=== PATIENT | male | born 1995 | race Caucasian/White ===

== ENCOUNTER → 2020-08-06 17:24 | Outpatient (CLI) | payer SELFPAY ==
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
== END ==
PROVIDERS: Visit Provider Nurse Practitioner
DX: Z02.5 Encounter for examination for participation in sport (principal)

== ENCOUNTER 2021-04-13 22:36 | Emergency (ER) | payer OTHER, SELFPAY ==
[2021-04-13 22:38] VITALS: BP 141/89; PULSE 89; RESP 16; TEMP 36.4; O2SAT 98; BMI 19.8
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
[2021-04-13 23:00] VITALS: BP 163/66; PULSE 52; O2SAT 97
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
[2021-04-13 23:30] VITALS: BP 149/85; PULSE 71; RESP 16; O2SAT 99
[2021-04-14 00:06] VITALS: BP 137/75; PULSE 69; RESP 16; TEMP 36.6; O2SAT 98
== END 2021-04-14 00:07 | disposition home or self-care (01) ==
PROVIDERS: Emergency Provider Emergency Medicine
DX: S69.81XA Other specified injuries of right wrist, hand and finger(s), initial encounter (principal); W39.XXXA Discharge of firework, initial encounter; Z88.0 Allergy status to penicillin
CPT/HCPCS: 73130; 99281; 99282

== ENCOUNTER → 2021-11-13 16:08 | Outpatient (CLI) | payer OTHER, SELFPAY | PROVIDERS: Visit Provider Urology | DX: Z01.812 Encounter for preprocedural laboratory examination (principal); Z11.52 Encounter for screening for COVID-19; Z30.2 Encounter for sterilization | CPT/HCPCS: C9803; U0003; U0005 ==

== ENCOUNTER 2021-12-24 22:35 | Emergency (ER) | payer OTHER, SELFPAY ==
[2021-12-24 22:36] VITALS: BP 128/87; PULSE 104; RESP 18; TEMP 36.3; O2SAT 100; BMI 19.8
--- NOTE | 2021-12-24 23:05 | CT_ITS ---
PROCEDURE INFORMATION: Exam: CT Abdomen And Pelvis With Contrast Exam date and time: 12/24/2021 11:05 PM Age: 26 years old Clinical indication: Abdominal pain; Patient HX: Diarrhea that started around 1400 today. States he feels queasy with abdominal cramping TECHNIQUE: Imaging protocol: Computed tomography of the abdomen and pelvis with contrast. Radiation optimization: All CT scans at this facility use at least one of these dose optimization techniques: automated exposure control; mA and/or kV adjustment per patient size (includes targeted exams where dose is matched to clinical indication); or iterative reconstruction. Contrast material: ISOVUE; Contrast volume: 75 ml; Contrast route: IV; COMPARISON: No relevant prior studies available. FINDINGS: Liver: Normal. No mass. Gallbladder and bile ducts: Normal. No calcified stones. No ductal dilation. Pancreas: Normal. No ductal dilation. Spleen: Normal. No splenomegaly. Adrenal glands: Normal. No mass. Kidneys and ureters: Normal. No hydronephrosis. Stomach and bowel: There is fluid within the rectum and sigmoid colon. There is wall thickening of the descending, transverse and ascending colons concerning for low-grade colitis. Scattered fluid-filled nondistended small bowel loops. No bowel obstruction. Appendix: Normal appendix. Intraperitoneal space: Unremarkable. No free air. No significant fluid collection. Vasculature: Unremarkable. No abdominal aortic aneurysm. Lymph nodes: Unremarkable. No enlarged lymph nodes. Urinary bladder: Urinary bladder not well distended. Reproductive: Unremarkable as visualized. Bones/joints: Unremarkable. No acute fracture. Soft tissues: Unremarkable. IMPRESSION: 1. Colitis involving the descending, transverse and ascending colons. 2. Scattered fluid-filled nondistended small bowel loops which could reflect low-grade enteritis.
[2021-12-24 23:16] LABS: Basophils # 0.2 K/mm3 (0-0.2); Basophils % 1.6 % (0.1-2.0); Eosinophils # 0.2 K/mm3 (0.0-0.4); Eosinophils % 1.2 % (0.1-12.0); Hematocrit 59.2 % (42.0-52.0); Lymphocytes # 0.5 K/mm3 (0.7-4.5); Lymphocytes % 3.5 % (10-50); Mean Corpuscular HGB Conc 33.1 g/dL (31.8-35.4); Mean Corpuscular Hemoglobin 31.1 pg (27.0-31.2); Mean Corpuscular Volume 94.2 fl (80-94); Mean Platelet Volume 8.4 fl (7.4-10.4); Monocytes # 0.5 K/mm3 (0.1-1.0); Monocytes % 3.5 % (1.7-9.3); Neutrophils % 90.3 % (37.0-80.0); Platelet Count 422 K/mm3 (142-424); Red Blood Count 6.28 M/mm3 (4.60-6.20); White Blood Count 15.6 K/mm3 (4.8-10.8)
--- NOTE | 2021-12-24 23:19 | HMH.EDNVD ---
ED Disposition Clinical Impression: Colitis, Rotavirus enteritis Disposition: Home, Self-Care Condition on Discharge: Good Instructions: DI for Rotavirus -- Adult Additional Instructions: fluids and see pcp for follow up Prescriptions: Ondansetron [Zofran 4mg ODT] 4 mg PO TIDP PRN #15 tab PRN Reason: Nausea And Vomiting Transmission Status: Pending to [id number] Referrals: Antonio Hurt MD [Primary Care Provider] - - Critical Care Critical Care Time: No Attestation: On 12/24/21, the high probability of a clinically significant, sudden or life threatening deterioration of the following system(s) required my full and direct attention, intervention and personal management. The time I documented below is in addition to time spent performing reported procedures but includes the following listed in this critical care notation. Medical Decision Making - Medical Records Medical records reviewed: Yes: I reviewed the patient's medical records. - Mario Inquiry Pt receiving controlled substance: No Vital Signs: 12/24/21 22:36 12/24/21 23:33 12/25/21 00:00 Temperature 97.4 F L Temperature Source Oral Pulse Rate 98 H 90 Pulse Rate [Left Brachial] 104 H Respiratory Rate 18 Blood Pressure 129/83 133/73 Blood Pressure [Right Arm] 128/87 Blood Pressure Mean 91 100 Blood Pressure Mean [Right Arm] 100 02 Sat by Pulse Oximetry 100 100 97 Oxygen Delivery Method Room Air 12/25/21 00:30 12/25/21 01:00 12/25/21 01:30 Temperature Temperature Source Pulse Rate 90 88 70 Pulse Rate [Left Brachial] Respiratory Rate Blood Pressure 148/75 H 134/68 131/71 Blood Pressure [Right Arm] Blood Pressure Mean 95 90 89 Blood Pressure Mean [Right Arm] 02 Sat by Pulse Oximetry 97 100 98 Oxygen Delivery Method - Lab Data Lab results reviewed: Yes: I reviewed the patient's lab results. Lab Results 12/24/21 22:20: WBC 15.6 H, RBC 6.28 H, Hgb 19.6 H, Hct 59.2 H, MCV 94.2 H, MCH 31.1, MCHC 33.1, RDW 13.0, Plt Count 422, MPV 8.4, Neut % (Auto) 90.3 H, Lymph % (Auto) 3.5 L, [place]ford % (Auto) 3.5, Eos % (Auto) 1.2, Baso % (Auto) 1.6, Neut # (Auto) 14.0 H, Lymph # (Auto) 0.5 L, Blackford # (Auto) 0.5, Eos # (Auto) 0.2, Baso # (Auto) 0.2, Total Counted 100, Neutrophils % (Manual) 88 H, Lymphocytes % (Manual) 6 L, Monocytes % (Manual) 4, Basophils % (Manual) 2.0 H, Platelet Estimate Normal, RBC Morphology Normal 12/24/21 22:20: Sodium 140, Potassium 5.0, Chloride 101, Carbon Dioxide 21 L, Anion Gap 23.0 H, BUN 15, Creatinine 2.00 H, Estimated Creat Clear 53, Estimated GFR 40 L, Est GFR ( Amer) 49 L, Glucose 175 H, Calcium 11.1 H 12/24/21 22:20: Creatinine 2.00 H, Estimated Creat Clear 53, Estimated GFR 40 L, Est GFR ( Amer) 49 L, Amylase 97 12/24/21 22:20: Lipase 126, Procalcitonin 0.106 12/24/21 22:20: Total Bilirubin 1.3, Direct Bilirubin 0.6 H, Conjugated Bilirubin 0.0, Indirect Bilirubin 0.7, Unconjugated Bilirubin 0.7, AST 47, ALT 27, Alkaline Phosphatase 93, C-Reactive Protein < 0.3, Total Protein 10.7 H, Albumin 6.2 H 12/24/21 22:20: ESR 3 12/24/21 22:30: Stl Aeromonas (PCR) Not detected, Stl C. cayetanensis PCR Not detected, Stool Rotavirus (PCR) Detected A, Stl Adenov F 40/41 PCR Not detected, Stool Astrovirus (PCR) Not detected, Stool Campylobacter PCR Not detected, Stl C.difficile Tox PCR Not detected, Stool Cryptosporidium PCR Not detected, Stl E.coli Shiga Tox PCR Not detected, Stool E coli O157 PCR Not detected, Stl Enterotoxigenic E PCR Not detected, Stool EPEC (PCR) Not detected, Stool EAEC (PCR) Not detected, Stl E. histolytica PCR Not detected, Stool Giardia Lamblia PCR Not detected, Stool Salmonella PCR Not detected, Stool Sapovirus (PCR) Not detected, Stl P. shigelloides PCR Not detected, Stl Shigella/EIEC PCR Not detected, St Y.enterocolitica PCR Not detected, Stool Vibrio (PCR) Not detected, Stl Vibrio cholerae PCR Not detected, Stl Norovirus GI/GII PCR Not detected
[2021-12-24 23:26] LABS: Amylase 97 U/L (30-110); Creatinine Clearance Estimated 53 mL/min (50-200); Estimated Glomerular Filt Rate 40 ml/min (>60); GFR (African American) 49 ML/MIN (>60); MANUAL DIFFERENTIAL MANUAL DIFFERENTIAL (MANUAL DIFF)
[2021-12-24 23:27] LABS: Blood Urea Nitrogen 15 mg/dl (9-20); Calcium 11.1 mg/dl (8.4-10.2); Carbon Dioxide 21 mmol/L (22.0-30.0); Chloride 101 mmol/L (98-107); Creatinine Clearance Estimated 53 mL/min (50-200); Estimated Glomerular Filt Rate 40 ml/min (>60); GFR (African American) 49 ML/MIN (>60); Glucose 175 mg/dl (74-100); Hemoglobin 19.6 g/dL (14.1-18.0); Sodium 140 mmol/L (136-145)
[2021-12-24 23:33] VITALS: BP 129/83; PULSE 98; O2SAT 100
[2021-12-24 23:48] LABS: Erythrocyte Sedimentation Rate 3 mm/hr (0-15)
[2021-12-24 23:53] LABS: Alanine Aminotransferase 27 U/L (12-78); Aspartate Amino Transferase 47 U/L (17-59); Bilirubin,Unconjugated 0.7 mg/dL (0.0-1.1); Lipase 126 U/L (23-300); Lymphocytes % 6 % (10-50); Monocytes % 4 % (2-9); Neutrophils % 88 % (42-76); Platelet Estimate Normal; RBC Morphology Normal; Total Cells Counted 100
[2021-12-24 23:54] LABS: Alkaline Phosphatase 93 U/L (38-126); Bilirubin,Direct 0.6 mg/dl (0.0-0.4); Bilirubin,Indirect 0.7 mg/dL (0.0-0.9); Bilirubin,Total 1.3 mg/dl (0.2-1.3)
[2021-12-25] VITALS: BP 133/73; PULSE 90; O2SAT 97
[2021-12-25] LABS: Total Protein,Serum 10.7 g/dl (6.3-8.2)
[2021-12-25 00:02] LABS: Adenovirus F 40/41, stool Not Detected (NotDetected); Astrovirus Not Detected (NotDetected); Campylobacter Not Detected (NotDetected); Clostridium Difficile A/B, PCR Not Detected (NotDetected); Cryptosporidium Not Detected (NotDetected); Cyclospora Cayetanesis Not Detected (NotDetected); Entamoeba histolytica Not Detected (NotDetected); Enteroaggregative E coli Not Detected (NotDetected); Enteropathogenic E coli Not Detected (NotDetected); Enterotoxigenic E coli Not Detected (NotDetected); Giardia lamblia Not Detected (NotDetected); Norovirus Not Detected (NotDetected); Plesimonas Shigalloides, PCR Not Detected (NotDetected); Salmonella, PCR Not Detected (NotDetected); Sapovirus Not Detected (NotDetected); Shiga-like toxin E coli Not Detected (NotDetected); Shigella Enterovasive E coli Not Detected (NotDetected); Vibrio Cholerae Not Detected (NotDetected); Vibrio, PCR Not Detected (NotDetected); Yersinia Entercolitica, PCR Not Detected (NotDetected)
[2021-12-25 00:10] LABS: C-Reactive Protein < 0.3 mg/L (0-4)
[2021-12-25 00:11] LABS: Procalcitonin 0.106 ng/mL (0.0-2.0)
[2021-12-25 00:28] LABS: Albumin Level 6.2 g/dl (3.5-5.0)
[2021-12-25 00:30] VITALS: BP 148/75; PULSE 90; O2SAT 97
[2021-12-25 01:00] VITALS: BP 134/68; PULSE 88; O2SAT 100
[2021-12-25 01:12] LABS: Lactic Acid 0.9 mmol/L (0.7-2.1)
[2021-12-25 01:30] VITALS: BP 131/71; PULSE 70; O2SAT 98
--- NOTE | 2021-12-25 01:59 | PC.NURSE ---
PT SLEEPING WITH EYES CLOSED. RESPIRATIONS EVEN AND NON-LABORED. FAMILY AT BEDSIDE. NO ACUTE DISTRESS NOTED.
[2021-12-25 02:06] LABS: Microscopic, Urine URINE MICROSCOPIC (MICROSCOPIC)
[2021-12-25 02:07] LABS: Rotavirus A Detected (NotDetected)
[2021-12-25 02:15] LABS: Appearance,Urine CLEAR (Clear); Bilirubin,Urine Negative (Negative); Blood, Urine TRACE-L (Negative); Color,Urine YELLOW (Yellow); Glucose,Urine (UA) TRACE (Negative); Ketones,Urine Negative (Negative); Leukocyte Esterase,Urine Negative (Negative); Nitrate,Urine Negative (Negative); Protein,Urine 3+ (Negative); Specific Gravity, Urine >= 1.030 (1.005-1.030); Urobilinogen,Urine 0.2 EU/dl (0.2)
[2021-12-25 02:34] LABS: Amorphous Sediment,Urine 1+ /lpf; Bacteria,Urine 1+ /lpf; Squamous Epithelial Cell,Urine Occasional #/hpf (0-5)
[2021-12-25 02:47] VITALS: BP 118/65; PULSE 72; RESP 16; TEMP 36.8; O2SAT 97
== END 2021-12-25 02:53 | disposition home or self-care (01) ==
PROVIDERS: Emergency Provider Emergency Medicine; PCP Emergency Medicine
DX: A08.0 Rotaviral enteritis (principal); K52.9 Noninfective gastroenteritis and colitis, unspecified; R25.2 Cramp and spasm; F17.210 Nicotine dependence, cigarettes, uncomplicated; Z79.899 Other long term (current) drug therapy; Z88.0 Allergy status to penicillin; M79.18 Myalgia, other site
CPT/HCPCS: 74177; 80048; 80076; 81001; 82150; 82565; 83605; 83690; 84145; 85007; 85025; 85651; 86140; 87040; 87507; 96361; 96365; 96366; 96374; 96375; 99284; J2405; Q9967

== ENCOUNTER 2022-12-01 19:25 | Emergency (ER) | payer BC, SELFPAY ==
[2022-12-01 19:26] VITALS: BP 150/70; PULSE 74; RESP 16; TEMP 36.9; O2SAT 98; BMI 19.6
--- NOTE | 2022-12-01 19:38 | XR_ITS ---
PROCEDURE INFORMATION: Exam: XR Left Foot Exam date and time: 12/01/2022 8:40 PM Age: 27 years old Clinical indication: Pain; Foot; Left; Additional info: Pain; Swelling TECHNIQUE: Imaging protocol: Radiologic exam of the Left foot. Views: 3 or more views. COMPARISON: CT FOOT LT WO CON 12/01/2022 8:35 PM FINDINGS: Bones/joints: Normal. Soft tissues: Normal. IMPRESSION: No acute findings.
--- NOTE | 2022-12-01 19:38 | XR_ITS ---
PROCEDURE INFORMATION: Exam: XR Left Ankle Exam date and time: 12/01/2022 8:39 PM Age: 27 years old Clinical indication: Pain; Ankle; Left; Additional info: Pain; Swelling TECHNIQUE: Imaging protocol: Radiologic exam of the Left ankle. Views: 3 or more views. COMPARISON: CT FOOT LT WO CON 12/01/2022 8:35 PM FINDINGS: Bones/joints: Normal. Soft tissues: Normal. IMPRESSION: No acute findings.
--- NOTE | 2022-12-01 20:06 | HMH.EDLOEX ---
Discharge Plan Disposition Patient Disposition: Home, Self-Care Prescriptions Prescriptions: New prednisone [prednisone] 20 mg tablet 20 mg PO BID Qty: 10 0RF Referrals Follow up/Referrals: Provider,Referral, [Primary Care Provider] - See instructions Reanna Plummer DPM [Staff Physician] - See instructions Clinical Impressions Clinical Impression: Injury of foot, left Instructions Patient Instructions: DI for Foot Pain Discharge ED Provider: Blu (ED)Antonio Lower Extremity Injury HPI General Chief Complaint: Extremity Injury, Lower Stated Complaint: Left foot, no accident Time Seen by Provider: 12/01/22 20:05 Mode of Arrival: Ambulatory Source of Information: Patient, Spouse and Medical Record Limitations: No Limitations Description of Symptoms (Recalled from ER Triage Doc. by RN): pt advises he felt a pop in his left foot/ankle around 1830, and noticed some swelling on the left side of the foot. Pt advises it is painful to walk on. No obvious deformity noted. +PMS History of Present Illness HPI Narrative: pt with acute pain lt foot tonight with pain and swelling - heard pop complaint: foot injury Onset (ago): hour(s) Injury: Left: foot Type of Injury: unknown Place: home Severity: moderate Exacerbating factors: weight bearing and movement Associated symptoms: snap/pop sensation Other symptoms: none Related Data Previous Rx's Medication Instructions Recorded prednisone 20 mg tablet 20 mg PO BID #10 tabs 12/01/22 Allergies Allergy/AdvReac Type Severity Reaction Status Date / Time Penicillins Allergy Verified 01/15/22 14:11 [facility] Disclaimer: The information contained in this section may have been updated after the patient was seen, as this information can be updated by other users. Social History Smoking Status: Current every day smoker tobacco type: cigarettes packs per day: 1 alcohol intake: current substance use type: denies use current occupational status: employed Travel in the last 8 weeks: None household members: family housing: house caffeine: Yes ROS Obtained: Yes All systems reviewed & no additional complaints except as documented Physical Exam General General appearance: alert Head Head exam: normocephalic Eye Eye exam: Present PERRL and EOMI ENT ENT exam: Present mucous membranes moist Neck Neck exam: Present full ROM Respiratory Respiratory exam: Absent respiratory distress Cardiovascular Cardiovascular exam: Present regular rate Abdominal Exam Abdominal exam: Present soft Expanded Lower Extremity Exam Left: Ankle exam: Present normal inspection Foot/toe exam: Present tenderness and swelling; Absent full ROM Neurovascular/Tendon exam: Present normal capillary refill; Absent pulse deficit, motor deficit or sensory deficit Neurological Exam Neurological exam: Present alert, oriented X3 and CN II-XII intact; Absent motor sensory deficit Psychiatric Psychiatric exam: Present normal affect Skin Skin exam: Absent rash Medical Decision Making Medical Records Medical records reviewed: Yes I reviewed the patient's medical records. Mario Inquiry Pt receiving controlled substance: No Vital Signs: 12/01/22 19:26 Temperature 98.5 F Temperature Source Oral Pulse Rate [Right] 74 Respiratory Rate 16 Blood Pressure [Right Arm] 150/70 H Blood Pressure Mean [Right Arm] 96 Blood Pressure Source [Right Arm] Automatic Cuff Blood Pressure Position [Right Arm] Sitting 02 Sat by Pulse Oximetry 98 Oxygen Delivery Method Room Air Lab Data Lab results reviewed: Yes I reviewed the patient's lab results. Lab Results 12/01/22 20:40: WBC 9.9, RBC 5.34, Hgb 16.0, Hct 47.8, MCV 89.4, MCH 30.0, MCHC 33.5, RDW 13.2, Plt Count 366, MPV 7.6, Neut % (Auto) 68.7, Lymph % (Auto) 23.1, Adams % (Auto) 3.7, Eos % (Auto) 3.2, Baso % (Auto) 1.4, Neut # (Auto) 6.8, Lymph # (Auto) 2.3, Adams # (Auto) 0.4, Eos # (Auto) 0.3, Baso # (Aut
--- NOTE | 2022-12-01 20:14 | CT_ITS ---
PROCEDURE INFORMATION: Exam: CT Left Lower Extremity Without Contrast, Foot Exam date and time: 12/01/2022 8:35 PM Age: 27 years old Clinical indication: Patient HX: C/O pain, swelling left foot, nki TECHNIQUE: Imaging protocol: CT of the Left lower extremity without contrast was performed. Exam focused on the foot. Radiation optimization: All CT scans at this facility use at least one of these dose optimization techniques: automated exposure control; mA and/or kV adjustment per patient size (includes targeted exams where dose is matched to clinical indication); or iterative reconstruction. Other protocol: This patient has received [address] and 0 known cardiac nuclear medicine studies in the 12 months prior to the current study. COMPARISON: CR FTL3 FOOT-LT-3 VIEWS 12/07/2016 3:11 PM FINDINGS: Bones/joints: Normal. No acute fracture or dislocation. Pes cavus. Variant bipartite medial sesamoid. Soft tissues: Normal. IMPRESSION: Unremarkable CT.
[2022-12-01 20:48] LABS: Basophils # 0.1 K/mm3 (0-0.2); Basophils % 1.4 % (0.1-2.0); Eosinophils # 0.3 K/mm3 (0.0-0.4); Eosinophils % 3.2 % (0.1-12.0); Hematocrit 47.8 % (42.0-52.0); Lymphocytes # 2.3 K/mm3 (0.7-4.5); Lymphocytes % 23.1 % (10-50); Mean Corpuscular HGB Conc 33.5 g/dL (31.8-35.4); Mean Corpuscular Volume 89.4 fl (80-94); Mean Platelet Volume 7.6 fl (7.4-10.4); Monocytes # 0.4 K/mm3 (0.1-1.0); Monocytes % 3.7 % (1.7-9.3); Neutrophils # 6.8 K/mm3 (1.8-7.8); Neutrophils % 68.7 % (37.0-80.0); Platelet Count 366 K/mm3 (142-424); Red Blood Count 5.34 M/mm3 (4.60-6.20); Red Cell Distribution Width 13.2 % (11.5-17.5); White Blood Count 9.9 K/mm3 (4.8-10.8)
[2022-12-01 21:00] LABS: Anion Gap 9.5 mEq/L (5-15); Blood Urea Nitrogen 5 mg/dl (9-20); Calcium 9.9 mg/dl (8.4-10.2); Carbon Dioxide 28 mmol/L (22.0-30.0); Chloride 107 mmol/L (98-107); Creatinine Clearance Estimated 114 mL/min (50-200); Estimated Glomerular Filt Rate 100 ml/min (>60); GFR (African American) 122 ML/MIN (>60); Glucose 106 mg/dl (74-100); Potassium 4.5 mmoL/L (3.5-5.1); Sodium 140 mmol/L (136-145)
[2022-12-01 22:18] VITALS: BP 150/71; PULSE 78; RESP 17; TEMP 36.7; O2SAT 97
== END 2022-12-01 22:22 | disposition home or self-care (01) ==
PROVIDERS: Emergency Provider Emergency Medicine
DX: S99.922A Unspecified injury of left foot, initial encounter (principal); F17.210 Nicotine dependence, cigarettes, uncomplicated; X58.XXXA Exposure to other specified factors, initial encounter
CPT/HCPCS: 73610; 73630; 73700; 80048; 85025; 96372; 99285

== ENCOUNTER 2023-06-13 01:12 | Emergency (ER) | payer BC, SELFPAY ==
[2023-06-13 01:17] VITALS: BP 167/116; PULSE 90; RESP 18; TEMP 36.6; O2SAT 100; BMI 19.6
--- NOTE | 2023-06-13 01:23 | HMH.EDGENADL ---
Discharge Plan Disposition Patient Disposition: Home, Self-Care Condition: Good Prescriptions Prescriptions: New clindamycin HCl 150 mg capsule 450 mg PO TID 5 Days Qty: 45 0RF oxycodone 5 mg tablet 5 mg PO Q8H PRN (Reason: pain) Qty: 12 0RF No Action prednisone [prednisone] 20 mg tablet 20 mg PO BID Qty: 10 0RF Referrals Follow up/Referrals: Provider,Referral, MD [Primary Care Provider] - See instructions Activity Restrictions/Add. Instructions Additional Instructions/Restrictions: Please follow-up with your primary care provider. Please return to the emergency department if you develop any new or worsening symptoms or become concerned for your health. Please take Tylenol and ibuprofen as needed for pain. Please take oxycodone as needed for severe pain. Please take clindamycin as prescribed for treatment of presumed dental infection. Please follow-up with a dentist as quickly as possible. Clinical Impressions Clinical Impression: Pain, dental Discharge ED Provider: Cy Vergara Adult HPI General Chief complaint: Dental/Oral Stated complaint: toothache Time Seen by Provider: 06/13/23 01:18 Mode of Arrival: Ambulatory Source of Information: Patient Limitations: No Limitations Description of Symptoms (Recalled from ER Triage Doc. by RN): Tooth ache that started today. Patient has taken Tylenol and prednisone. History of Present Illness HPI narrative: 28-year-old male previously healthy presents with severe left mandibular pain starting earlier today. Reports pain is not improved with home oral Tylenol and ibuprofen. Patient has bad teeth and has been working to get into a dentist but has been unable to. Patient is concerned given it is the holiday weekend that he will not be able to get into a dentist for at least 3 to 4 days. No fevers at home. Patient complains of facial swelling. Related Data Previous Rx's Medication Instructions Recorded prednisone 20 mg tablet 20 mg PO BID #10 tabs 12/01/22 clindamycin HCl 150 mg capsule 450 mg PO TID 5 days #45 caps 06/13/23 oxycodone 5 mg tablet 5 mg PO Q8H PRN pain #12 tabs 06/13/23 Allergies Allergy/AdvReac Type Severity Reaction Status Date / Time Penicillins Allergy Verified 01/15/22 14:11 [facility] Disclaimer: The information contained in this section may have been updated after the patient was seen, as this information can be updated by other users. Social History Smoking Status: Current every day smoker tobacco type: cigarettes packs per day: 1 alcohol intake: current substance use type: denies use current occupational status: employed Travel in the last 8 weeks: None household members: family housing: house caffeine: Yes ROS Obtained: Yes All systems reviewed & no additional complaints except as documented Physical Exam General General appearance: alert and in no apparent distress Head Head exam: atraumatic, normocephalic and other (No significant facial swelling noted) Eye Eye exam: Present normal appearance, PERRL and EOMI ENT ENT exam: Present normal oropharynx, normal external ear exam and other (Poor dentition, tenderness palpation to the left mandibular posterior most molar) Neck Neck exam: Present normal inspection and full ROM Chest Chest inspection: Present normal inspection and symmetric chest wall rise; Absent tenderness Respiratory Respiratory exam: Present normal lung sounds bilaterally; Absent respiratory distress Cardiovascular Cardiovascular exam: Present regular rate and normal rhythm Abdominal Exam Abdominal exam: Present soft; Absent distention, tenderness or guarding Extremities Exam Extremities exam: Present normal inspection; Absent edema or joint swelling Back Exam Back exam: Present normal inspection; Absent tenderness Neurological Exam Neurological exam: Present alert and oriented X3; Absent motor sensory deficit Psychiatric Psychiatric exam: Present normal aff
[2023-06-13 01:47] VITALS: BP 139/86; PULSE 85; RESP 16; TEMP 36.9; O2SAT 100
== END 2023-06-13 01:48 | disposition home or self-care (01) ==
PROVIDERS: Emergency Provider Emergency Medicine
DX: R68.84 Jaw pain (principal); F17.210 Nicotine dependence, cigarettes, uncomplicated
CPT/HCPCS: 99283

== ENCOUNTER 2023-06-16 18:45 | Emergency (ER) | payer BC, SELFPAY ==
[2023-06-16 19:47] VITALS: BP 162/95; PULSE 58; RESP 16; TEMP 36.9; O2SAT 100; BMI 19.6
--- NOTE | 2023-06-16 20:00 | [facility].EDGENADL ---
Discharge Plan Disposition Patient Disposition: Home, Self-Care Condition: Good Chief Complaint: Dental/Oral Prescriptions Prescriptions: No Action clindamycin HCl 150 mg capsule 450 mg PO TID 5 Days Qty: 45 0RF oxycodone 5 mg tablet 5 mg PO Q8H PRN (Reason: pain) Qty: 12 0RF prednisone [prednisone] 20 mg tablet 20 mg PO BID Qty: 10 0RF Referrals Follow up/Referrals: Provider,Referral, MD [Primary Care Provider] - See instructions Clinical Impressions Clinical Impression: Pain, dental Instructions Patient Instructions: DI for Dental Pain Discharge ED Provider: Dustin Morales General Adult HPI General Chief complaint: Dental/Oral Stated complaint: need medication refile Time Seen by Provider: 06/16/23 19:55 Mode of Arrival: Ambulatory Source of Information: Patient Limitations: No Limitations Description of Symptoms (Recalled from ER Triage Doc. by RN): pt c/o left lower dental pain and was seen in er on 06/13 and recieved a dental block and script for oxycodone. pt unable to get appointment to dentist until . pt is requesting another script for pain. History of Present Illness HPI narrative: 28-year-old male previously healthy presents with c/o left lower dental pain and was seen in ER on 06/13 and recieved a dental block and script for oxycodone and clindamycin. pt unable to get appointment to dentist until . pt is requesting another script for pain. Reports pain is not improved with home oral Tylenol and ibuprofen. No fevers at home. Patient complains of facial swelling. Related Data Previous Rx's Medication Instructions Recorded prednisone 20 mg tablet 20 mg PO BID #10 tabs 12/01/22 clindamycin HCl 150 mg capsule 450 mg PO TID 5 days #45 caps 06/13/23 oxycodone 5 mg tablet 5 mg PO Q8H PRN pain #12 tabs 06/13/23 Allergies Allergy/AdvReac Type Severity Reaction Status Date / Time Penicillins Allergy Verified 01/15/22 14:11 [facility] Disclaimer: The information contained in this section may have been updated after the patient was seen, as this information can be updated by other users. Social History Smoking Status: Current every day smoker tobacco type: cigarettes packs per day: 1 alcohol intake: current substance use type: denies use current occupational status: employed Travel in the last 8 weeks: None household members: family housing: house caffeine: Yes ROS Obtained: Yes All systems reviewed & no additional complaints except as documented Physical Exam General General appearance: alert and in no apparent distress Head Head exam: atraumatic, normocephalic and normal inspection Eye Eye exam: Present normal appearance, PERRL and EOMI; Absent scleral icterus or nystagmus ENT ENT exam: Present normal exam, mucous membranes moist and normal external ear exam Neck Neck exam: Present normal inspection, full ROM and trachea midline Chest Chest inspection: Present normal inspection and symmetric chest wall rise; Absent tenderness Respiratory Respiratory exam: Present normal lung sounds bilaterally; Absent respiratory distress, wheezes or accessory muscle use Cardiovascular Cardiovascular exam: Present regular rate, normal rhythm and normal heart sounds Abdominal Exam Abdominal exam: Present soft; Absent distention, tenderness, guarding, rebound, rigidity, trauma, ascites or pulsatile mass exam: Present deferred Extremities Exam Extremities exam: Present normal inspection and full ROM; Absent tenderness Back Exam Back exam: Present normal inspection and full ROM; Absent tenderness Neurological Exam Neurological exam: Present alert, oriented X3, normal gait and motor sensory deficit Psychiatric Psychiatric exam: Present normal affect and normal mood Skin Skin exam: Present warm, dry and normal color Medical Decision Making Medical Records Medical records reviewed: Yes I reviewed the patient's medical records. Mario Mcdaniel Pt
[2023-06-16 20:15] VITALS: BP 142/75; PULSE 54; RESP 16; TEMP 36.9; O2SAT 100
== END 2023-06-16 20:19 | disposition home or self-care (01) ==
LOC: UTC 18:50 → ER 19:34
PROVIDERS: Emergency Provider Emergency Medicine
DX: R22.0 Localized swelling, mass and lump, head (principal); G50.1 Atypical facial pain; F17.210 Nicotine dependence, cigarettes, uncomplicated
CPT/HCPCS: 99283